=== PATIENT | male | born 1940 ===

== ENCOUNTER 2016-12-25 11:37 | Emergency (ER) | payer MEDICARE, OTHER ==
--- NOTE | 2016-12-25 13:19 | RAD ---
INDICATION: Right great toe swelling. TECHNIQUE: 3 views of the right great toe were obtained. FINDINGS: The bones are in normal alignment. Joint spaces appear maintained. No fracture is seen. There is soft tissue swelling present around the metatarsal phalangeal joint. There are soft tissue calcifications around this joint and a small erosion at the base of the proximal phalanx IMPRESSION: SOFT TISSUE SWELLING, CALCIFICATION AND EROSION AT THE METATARSOPHALANGEAL JOINT RAISING THE POSSIBILITY OF GOUTY ARTHRITIS.
--- NOTE | 2016-12-25 14:21 | UC ---
Lower Extremity/Ankle HPI - HPI Summary HPI Summary: FOUR DAYS PAIN REDNESS AND MILD SWELLING IN RIGHT BIG TOE. NO FEVER. NO TRAUMA. NO PREVIOUS HISTORY OF GOUT. HX OF DIABETES CONTROLLED WITH METFORMIN. - History of Current Complaint Chief Complaint: UCLowerExtremity Stated Complaint: SWOLLEN TOE Time Seen by Provider: 12/25/16 12:30 Hx Obtained From: Patient, Family/Framing Carpenter Onset/Duration: Gradual Onset, Lasting Days, Still Present Severity Initially: Moderate Severity Currently: Moderate Pain Intensity: 6 Pain Scale Used: 0-10 Numeric Aggravating Factor(s): Standing, Ambulation, Other - TOUGH Alleviating Factor(s): Rest, Elevation Able to Bear Weight: Yes - Risk Factors Gout Risk Factors: Age Over 40, Male, Diabetes DVT Risk Factors: Negative Septic Arthritis Risk Factor: Negative - Allergies/Home Medications Allergies/Adverse Reactions: Allergies Allergy/AdvReac Type Severity Reaction Status Date / Time IV contrast Allergy Hives Uncoded 12/25/16 11:49 IVP dye Allergy Hives Uncoded 12/25/16 11:48 Home Medications: Home Medications ALPRAZolam TAB* [Xanax TAB*] 12/25/16 [History] Cetirizine* [ZyrTEC 10 MG TAB*] 12/25/16 [History] Citalopram TAB* [Celexa TAB*] 12/25/16 [History Confirmed 12/25/16] Clopidogrel TAB* [Plavix TAB*] 12/25/16 [History] Finasteride TAB* [Proscar TAB*] 12/25/16 [History] Fluticasone NASAL SPRAY 50MCG* [Flonase NASAL SPRAY 50MCG*] 12/25/16 [History] Fluticasone/Vilanterol MDI(NF) [Breo Ellipta MDI 100/25(NF)] 12/25/16 [History Confirmed 12/25/16] Furosemide TAB* [Lasix TAB*] 12/25/16 [History] HYDROcodone/ACETAMIN 5-325 MG* [[place] 5-325 TAB*] 12/25/16 [History] Metoprolol Tartrate TAB* [Lopressor TAB*] 12/25/16 [History] Nitroglycerin TAB 0.4 MG* 12/25/16 [History] Pantoprazole TAB (NF) [Protonix TAB (NF)] 12/25/16 [History] Simvastatin TAB(NF) [Zocor 10 MG (NF)] 12/25/16 [History] diPHENhydraMINE PO* [Benadryl PO 25 MG TAB*] 12/25/16 [History] PMH/Surg Hx/FS Hx/Imm Hx Previously Healthy: Yes - Surgical History Surgical History: Yes Surgery Procedure, Year, and Place: Back. GI - Family History Known Family History: Positive: None - Social History Alcohol Use: Occasionally Substance Use Type: None Smoking Status (MU): Former Smoker Review of Systems Constitutional: Negative Skin: Other - REDNESS TENDERNESS PAIN RIGHT GREAT TOE Eyes: Negative ENT: Negative Respiratory: Negative Cardiovascular: Negative Gastrointestinal: Negative Genitourinary: Negative Motor: Negative Neurovascular: Negative Musculoskeletal: Negative Neurological: Negative Psychological: Negative All Other Systems Reviewed And Are Negative: Yes Physical Exam Triage Information Reviewed: Yes Appearance: Well-Appearing, No Pain Distress, Well-Nourished Vital Signs: Initial Vital Signs Temp 97.8 F 12/25/16 11:43 Pulse 77 12/25/16 11:43 Resp 12 12/25/16 11:43 BP 130/76 12/25/16 11:43 Pulse Ox 98 12/25/16 11:43 Vital Signs Reviewed: Yes Eye Exam: Normal ENT Exam: Normal ENT: Positive: Normal ENT inspection Dental Exam: Normal Neck exam: Normal Neck: Positive: Supple, Nontender Respiratory Exam: Normal Respiratory: Positive: Chest non-tender, Lungs clear, Normal breath sounds, No respiratory distress, No accessory muscle use Cardiovascular Exam: Normal Cardiovascular: Positive: RRR, No Murmur, Pulses Normal, Brisk Capillary Refill Abdominal Exam: Normal Musculoskeletal: Positive: ROM Intact, No Edema, Other: - TENDERNESS REDNESS RIGHT GREAT TOE Neurological Exam: Normal Psychological Exam: Normal Skin: Positive: Other - REDNESS TENDERNESS RIGHT GREAT TOE Lower Extremity Course/Dx - Differential Dx/Diagnosis Differential Diagnosis/HQI/PQRI: Cellulitis, Gout, Infection, Sprain, Strain Provider Diagnoses: GOUT RIGHT GREAT TOE Discharge - Discharge Plan Condition: Stable Disposition: HOME Prescriptions: predniSONE TAB* [Deltasone TAB*] 60 mg PO DAILY #9 tab Patient Education Materials: Low Purine Diet (ED), Gout (ED) Referrals: Juanita Ruiz MD [Medical Doctor] -
[2016-12-26 10:45] LABS: Hematocrit 48 % (42-52); Hemoglobin 15.6 g/dl (14.0-18.0); Mean Corpuscular HGB Conc 33 g/dl (31-36); Mean Corpuscular Hemoglobin 30 pg (27-31); Mean Corpuscular Volume 91 fL (80-94); Mean Platelet Volume 10 um3 (7.4-10.4); Red Blood Count 5.22 10^6/ul (4.0-5.4); Red Cell Distribution Width 14 % (10.5-15); White Blood Count 8.2 10^3/ul (3.5-10.8)
== END 2016-12-25 13:46 | disposition home or self-care (01) ==
LOC: UCEAST 11:37
DX: M10.9 Gout, unspecified (principal); E11.9 Type 2 diabetes mellitus without complications; Z79.84 Long term (current) use of oral hypoglycemic drugs; Z87.891 Personal history of nicotine dependence
CPT/HCPCS: 36415; 84550; 85025; 99202; G0463